=== PATIENT | female | born 1995 | race Caucasian/White ===

== ENCOUNTER 2016-11-27 13:19 | Emergency (ER) | payer SELFPAY ==
[2016-11-27 14:00] VITALS: BP 123/95
[2016-11-27 17:54] LABS: Bacteria,Urine 1+ /HPF (Negative); Bilirubin,Urine NEG (Negative); Blood,Urine NEG (Negative); Ketones,Urine NEG (Negative); Leukocyte Esterase,Urine NEG (Negative); Nitrite,Urine NEG (Negative); Protein,Urine <15 mg/dL mg/dL (Negative); Urobilinogen,Urine < 2.0 mg/dL (<2.0); WBC,Urine < 1.0 /HPF (0.0-6.0)
--- NOTE | 2016-11-27 22:43 | Emergency Department Report ---
Entered by ROSETTA STORY, acting as scribe for JUAN CARLOS SNELL PA. ED Female HPI - General Chief complaint: Sore Throat Stated complaint: SORE THROAT/ VAGINAL CHECK Time Seen by Provider: 11/27/16 15:57 Source: patient Mode of arrival: Ambulatory Limitations: No Limitations - History of Present Illness Initial comments: 21 y/o female with no significant PMHx presents to the ED c/o clear, thick vaginal discharge that began 2 days ago. Associated vaginal smell during sexual intercourse, but she denies dysuria, urgency, and frequency. Patient states she believes she has bacterial vaginosis. Notes Hx of similar symptoms 3 years ago when she first had her IUD placed, and was diagnosed with bacterial vagionosis. Patient's secondary complaint consists of a sore throat that began 2 weeks ago. Patient states her tonsils swelled with exudates 2 weeks, but the exudates subsided with drinking warm tea. Rates pain a 3/10 in severity, which she describes as aching in quality. Aggravated with swallowing and alleviated with hot fluids. Associated right ear pain and chills, but she denies fever, nausea, and vomiting. Allergic to amoxicillin. MD Complaint: vaginal discharge (white, thick) Onset/Timin -: days(s) Radiation: non-radiating Severity: mild Severity scale (0 -10): 0 Consistency: constant Improves with: none Worsens with: intercourse Are you Now?: No (patient has an IUD placed) Associated Symptoms: denies other symptoms, vaginal discharge (white, thick). denies: vaginal bleeding, abdominal pain, nausea/vomiting, fever/chills, headaches, dysuria, hematuria, rash, shortness of breath, weakness - Related Data Sexually active: Yes Previous Rx's Medication Instructions Recorded Last Taken Type Sulfamethoxazole/Trimethoprim 1 tab PO BID #12 tab 11/27/16 Unknown Rx [Bactrim 400-80 mg] metroNIDAZOLE 0.75% [Vandazole 1 applicator VG QHS #1 tube 11/27/16 Unknown Rx 0.75% VAGINAL] Allergies Allergy/AdvReac Type Severity Reaction Status Date / Time amoxicillin Allergy Rash Verified 11/27/16 14:00 ED Review of Systems Comment: All other systems reviewed and negative Constitutional: chills. denies: diaphoresis, fever, weakness ENT: ear pain (right ear), throat pain Respiratory: denies: cough, shortness of breath, wheezing Cardiovascular: denies: chest pain, palpitations Endocrine: no symptoms reported Gastrointestinal: denies: abdominal pain, nausea, vomiting, diarrhea Genitourinary: discharge (white, thick vaginal discharge). denies: urgency, dysuria, frequency Musculoskeletal: denies: back pain, joint swelling, arthralgia Skin: denies: rash, lesions Neurological: denies: headache, weakness, paresthesias ED Past Medical Hx - Past Medical History Previous Medical History?: No - Surgical History Past Surgical History?: No - Social History Smoking Status: Current Every Day Smoker Substance Use Type: Alcohol, Marijuana - Medications Home Medications: Home Medications Medication Instructions Recorded Confirmed Last Taken Type Sulfamethoxazole/Trimethoprim 1 tab PO BID #12 tab 11/27/16 Unknown Rx [Bactrim 400-80 mg] metroNIDAZOLE 0.75% [Vandazole 1 applicator VG QHS #1 tube 11/27/16 Unknown Rx 0.75% VAGINAL] ED Physical Exam - General Limitations: No Limitations General appearance: alert, in no apparent distress - Head Head exam: Present: atraumatic, normocephalic - Eye Eye exam: Present: normal appearance, PERRL, EOMI Pupils: Present: normal accommodation - ENT ENT exam: Present: mucous membranes moist. Absent: TM's normal bilaterally ( fluid present in TM's bilaterally) - Expanded ENT Exam Expanded Ear exam: Present: normal external inspection TM/Canal exam: Cerumen Impaction: Right TM, Left TM (fluid present in TM's ) Mouth exam: Present: normal external inspection (uvula is midline), tongue normal Teeth exam: Present: normal inspection Throat exam: Positive: normal inspection. Negative: tonsillar erythema, tonsillomegaly, tonsillar exudate, R peritonsillar mass, L peritonsillar mass - Neck Neck exam: Present: normal inspection, full ROM. Absent: tenderness, meningismus, lymphadenopathy - Respiratory Respiratory exam: Present: normal lung sounds bilaterally. Absent: respiratory distress, wheezes, rales, rhonchi, stridor - Cardiovascular Cardiovascular Exam: Present: regular rate, normal rhythm, normal heart sounds. Absent: systolic murmur, diastolic murmur, rubs, gallop - GI/Abdominal GI/Abdominal exam: Present: soft, normal bowel sounds. Absent: distended - External exam: Present: normal external exam. Absent: erythema, swelling, lesions, lacerations, bleeding Speculum exam: Present: vaginal discharge, cervical discharge. Absent: erythema , vaginal bleeding, foreign body, laceration Bi-manual exam: Present: normal bi-manual exam. Absent: cervical motion tendernes, adnexal tenderness, uterine enlargement, uterine tenderness - Extremities Exam Extremities exam: Present: normal inspection, full ROM - Back Exam Back exam: Present: normal inspection - Neurological Exam Neurological exam: Present: alert, oriented X3 - Psychiatric Psychiatric exam: Present: normal affect, normal mood - Skin Skin exam: Present: warm, dry, intact. Absent: rash ED Course Vital Signs 11/27/16 13:58 Temperature 98.1 F Pulse Rate 51 L Respiratory 16 Rate Blood Pressure 123/95 O2 Sat by Pulse 100 Oximetry ED Medical Decision Making - Medical Decision Making 21-year-old female presents with white, thick vaginal discharge for 2 days ED course: Urinalysis, UPT, chlamydia and gonorrhea, wet prep cultures collected and sent to lab Urinalysis positive for bacteria, UPT negative, wet prep cultures show greater than 20% clue cells. Discussed findings with patient. Discussed the patient we'll treat BV and urinary tract infection. Patient is not ill-appearing. Discussed with patient to take OTC Sudafed to relieve sinus pressure. Discussed the follow-up with PCP or supervisor rolling room as referred. Discuss his symptoms return or worsen to return to the ED Patient states understanding and will follow instructions. Vital signs stable. Patient is in no acute distress. ED Disposition Clinical Impression: Bacterial vaginitis UTI (urinary tract infection) Qualifiers: Urinary tract infection type: acute cystitis Hematuria presence: without hematuria Qualified Code(s): N30.00 - Acute cystitis without hematuria Disposition: TO HOME OR SELFCARE Is pt being admited?: No Does the pt Need Aspirin: No Condition: Stable Instructions: Bacterial Vaginosis (ED), Urinary Tract Infection in Women (ED) Prescriptions: metroNIDAZOLE 0.75% [Vandazole 0.75% VAGINAL] 1 applicator VG QHS #1 tube Sulfamethoxazole/Trimethoprim [Bactrim 400-80 mg] 1 tab PO BID #12 tab Referrals: PRIMARY CARE,MD [Primary Care Provider] - 3-5 Days [facility] [Outside] - 3-5 Days [facility] [Outside] - 3-5 Days Forms: STI Treatment and Prevention Time of Disposition: 18:00 This documentation as recorded by the JEZ marcum JASMINE,accurately reflects the service I personally performed and the decisions made by ,JUAN CARLOS SNELL PA.
== END 2016-11-27 18:07 | disposition home or self-care (01) ==
LOC: ED 13:19
DX: N76.0 Acute vaginitis (principal); N39.0 Urinary tract infection, site not specified; F17.210 Nicotine dependence, cigarettes, uncomplicated; F12.10 Cannabis abuse, uncomplicated; Z88.1 Allergy status to other antibiotic agents
CPT/HCPCS: 81001; 81025; 87210; 87591; 99283